=== PATIENT | male | born 1955 | race Caucasian/White ===

== ENCOUNTER 2024-11-13 16:50 | Emergency (ER) | payer MEDICARE ==
[2024-11-13] MEDS: Ibuprofen 600 MG Tab PO ONE (17:58)
== END 2024-11-13 18:02 | disposition home or self-care (01) ==
LOC: MW.ED 16:50
DX: S43.422A Sprain of left rotator cuff capsule, initial encounter (principal); Z88.8 Allergy status to other drugs, medicaments and biological substances; Z79.899 Other long term (current) drug therapy; W01.0XXA Fall on same level from slipping, tripping and stumbling without subsequent striking against object, initial encounter
CPT/HCPCS: 73030; 73060; 99283; A9270

== ENCOUNTER 2024-11-23 06:34 | Day surgery (SDC) | payer MEDICARE ==
[2024-11-23] MEDS: Lactated Ringers 1,000 ML IV SCH (06:58)
[2024-11-23] MEDS ORDERED: Sodium Chloride 0.9% 20 ML ONE (07:15)
[2024-11-23] MEDS ORDERED: dexmedeTOMIDine HCl 200 MCG/2 ML SDV ONE (07:15)
[2024-11-23] MEDS ORDERED: Lidocaine 2% 5 ML SDV ONE (07:16)
[2024-11-23] MEDS ORDERED: Ropivacaine 0.5% 5 MG/ML 30 ML SDV ONE (07:17)
[2024-11-23] MEDS ORDERED: Propofol 200 MG/20 ML SDV ONE (07:23)
[2024-11-23] MEDS ORDERED: fentaNYL 100 MCG/2 ML SDV ONE ×2 (07:24→08:16)
[2024-11-23] MEDS ORDERED: Albuterol 0.083% 2.5 MG/3 ML Neb Soln NEB PRN (07:46)
[2024-11-23] MEDS ORDERED: Metoclopramide 10 MG/2 ML SDV IVPUSH PRN (07:46)
[2024-11-23] MEDS ORDERED: Ondansetron 4 MG/2 ML SDV IVPUSH PRN (07:46)
[2024-11-23] MEDS ORDERED: Morphine 2 MG/ML SYRINGE IVPUSH PRN (07:46)
[2024-11-23] MEDS ORDERED: Naloxone 0.4 MG/ML SDV IVPUSH PRN (07:46)
[2024-11-23] MEDS ORDERED: Phenylephrine HCl In 0.9% NaCl 1 MG/10 ML Syringe IVPUSH PRN (07:46)
[2024-11-23] MEDS ORDERED: HYDROmorphone 1 MG/ML Syringe IVPUSH PRN (07:46)
[2024-11-23] MEDS ORDERED: fentaNYL 50 MCG/ML SDV IVPUSH PRN (07:46)
[2024-11-23] MEDS ORDERED: ePHEDrine 50 MG/ML SDV ONE (07:59)
[2024-11-23] MEDS ORDERED: ceFAZolin 2 GM in Water For Injection, Sterile 20 ML IVPUSH ONE (08:00)
[2024-11-23] MEDS ORDERED: Ketamine HCL/NACL, ISO-OSM 50 MG/5 ML Syringe ONE (08:13)
[2024-11-23] MEDS ORDERED: HYDROmorphone 1 MG/ML Syringe ONE ×2 (08:48→09:17)
[2024-11-23] MEDS ORDERED: Dexamethasone 4 MG/ML 5 ML MDV ONE (08:48)
[2024-11-23] MEDS ORDERED: Ondansetron 4 MG/2 ML SDV ONE (08:48)
== END 2024-11-23 12:10 | disposition home or self-care (01) ==
LOC: MW.SDS 06:34
PROVIDERS: ATTEND Orthopaedic Surgery
DX: M75.102 Unspecified rotator cuff tear or rupture of left shoulder, not specified as traumatic (principal); E78.00 Pure hypercholesterolemia, unspecified; K21.9 Gastro-esophageal reflux disease without esophagitis; Z79.899 Other long term (current) drug therapy
CPT/HCPCS: 23420; J1100; J1171; J2003; J2405; J2704; J2795; J3010; J7120; 01630; 64415; J3490